=== PATIENT | female | born 1975 | race American Indian/Alaskan Native ===

== ENCOUNTER 2017-10-05 16:43 | Emergency (ER) | payer SELFPAY ==
[2017-10-05 16:51] VITALS: BP 112/81
[2017-10-05 19:54] LABS: Bilirubin,Urine NEG (Negative); Blood,Urine NEG (Negative); Color,Urine Yellow (Yellow); Protein,Urine <15 mg/dL mg/dL (Negative); RBC,Urine < 1.0 /HPF (0.0-6.0); Urobilinogen,Urine < 2.0 mg/dL (<2.0)
--- NOTE | 2017-10-05 20:34 | Emergency Department Report ---
ED Abdominal Pain HPI - General Chief Complaint: Abdominal Pain Stated Complaint: WANTS CARE Time Seen by Provider: 10/05/17 17:11 Source: patient Mode of arrival: Ambulatory Limitations: No Limitations - History of Present Illness Initial Comments: Patient is a 42-year-old [place] female who is presenting with a week of lower abdominal crampiness. Patient/. Was in June of this year and the patient states she is not having this he says she has not taken a test however she just assumed that she was . The patient's had no vaginal bleeding vaginal discharge dysuria. Persistence of lower abdominal crampiness is 3 out of 10 in severity. Patient's Tongan is not very good and she has a blend technician here with her who is able to translate into [place]. - Related Data Previous Rx's Medication Instructions Recorded Last Taken Type Pnv No.118/Iron Fumarate/FA 1 each PO QDAY #30 tab.chew 10/05/17 Unknown Rx [ 19 Chewable] Allergies Allergy/AdvReac Type Severity Reaction Status Date / Time No Known Allergies Allergy Unverified 10/05/17 16:48 ED Review of Systems ROS: Stated complaint: WANTS CARE Other details as noted in HPI Comment: All other systems reviewed and negative ED Past Medical Hx - Past Medical History Previous Medical History?: No - Surgical History Past Surgical History?: No - Social History Smoking Status: Never Smoker Substance Use Type: None - Medications Home Medications: Home Medications Medication Instructions Recorded Confirmed Last Taken Type Pnv No.118/Iron Fumarate/FA 1 each PO QDAY #30 tab.chew 10/05/17 Unknown Rx [ 19 Chewable] ED Physical Exam - General Limitations: No Limitations General appearance: alert, in no apparent distress - Head Head exam: Present: atraumatic, normocephalic - Eye Eye exam: Present: normal appearance - ENT ENT exam: Present: mucous membranes moist - Neck Neck exam: Present: normal inspection - Respiratory Respiratory exam: Present: normal lung sounds bilaterally. Absent: respiratory distress, wheezes, rales, rhonchi - Cardiovascular Cardiovascular Exam: Present: regular rate, normal rhythm. Absent: systolic murmur, diastolic murmur, rubs, gallop - GI/Abdominal GI/Abdominal exam: Present: soft, distended, tenderness (spinal suprapubic tenderness, there is also obvious a gravid uterus), normal bowel sounds. Absent : guarding, rebound - Extremities Exam Extremities exam: Present: normal inspection - Back Exam Back exam: Present: normal inspection - Neurological Exam Neurological exam: Present: alert, oriented X3 - Psychiatric Psychiatric exam: Present: normal affect, normal mood - Skin Skin exam: Present: warm, dry, intact, normal color. Absent: rash ED Course Vital Signs 10/05/17 16:48 Temperature 98.1 F Pulse Rate 103 H Respiratory 18 Rate Blood Pressure 112/81 O2 Sat by Pulse 100 Oximetry ED Medical Decision Making - Radiology Data interpreted by me: A bedside ultrasound was performed by me that showed a viable IUP with a heart rate of 165. The head circumference measured the fetus at 17 weeks 4 days. This is consistent with her missing her last period in June. There is good movement. 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 Patient be discharged home Critical care attestation.: If time is entered above; I have spent that time in minutes in the direct care of this critically ill patient, excluding procedure time. ED Disposition Clinical Impression: Qualifiers: Weeks of gestation: 17 weeks Qualified Code(s): Z3A.17 - 17 weeks gestation of Disposition: DC-01 TO HOME OR SELFCARE Is pt being admited?: No Does the pt Need Aspirin: No Condition: Stable Instructions: Abdominal Pain in (ED) Prescriptions: Pnv No.118/Iron Fumarate/FA [ 19 Chewable] 1 each PO QDAY #30 tab.chew Referrals: ANUPAMA MONROE MD [Staff Physician] - 3-5 Days
== END 2017-10-05 20:40 | disposition home or self-care (01) ==
LOC: EDBD → ED 16:43
DX: O26.892 Other specified pregnancy related conditions, second trimester (principal); R10.30 Lower abdominal pain, unspecified; Z3A.17 17 weeks gestation of pregnancy
CPT/HCPCS: 81001; 99282

== ENCOUNTER 2018-03-09 09:42 | Outpatient (CLI) | payer SELFPAY ==
[2018-03-09 10:04] VITALS: BP 119/76
== END 2018-03-09 12:05 | disposition home or self-care (01) ==
LOC: TRG 09:42
PROVIDERS: ATTEND Obstetrics & Gynecology
DX: O47.1 False labor at or after 37 completed weeks of gestation (principal); Z3A.40 40 weeks gestation of pregnancy
CPT/HCPCS: 59025

== ENCOUNTER 2018-03-12 19:21 | Inpatient (IN) | payer OTHER ==
[2018-03-12] MEDS ORDERED: XYLOCAINE 2% INFILTRATI ONE (19:59)
[2018-03-12] MEDS ORDERED: MINERAL OIL PO PRN (19:59)
[2018-03-12] MEDS ORDERED: BRETHINE IVP PRN (19:59)
[2018-03-12] MEDS ORDERED: SUBLIMAZE IV PRN (19:59)
[2018-03-12] MEDS ORDERED: BRETHINE SUB-Q PRN (19:59)
[2018-03-12] MEDS ORDERED: PHENERGAN PO PRN (19:59)
[2018-03-12] MEDS ORDERED: ZOFRAN IV PRN (19:59)
[2018-03-12] MEDS ORDERED: PITOCin/NS 20 UNIT/1000ML DRIP 20 UNITS/1,000 ML BAG IV SCH (20:00)
[2018-03-12] MEDS ORDERED: PITOCin/NS 30 UNIT/500ML 30 UNITS/500 ML BAG IV SCH ×2 (20:00)
--- NOTE | 2018-03-12 20:05 | History and Physical Report ---
History of Present Illness Date of examination: 03/12/18 Chief complaint: labor History of present illness: Pt is a 42yo BF EDC 03/09/18; EGA 40 3/7 weeks presents to L&D complaining of SROM @ 10am followed by irregular contractions. She received care at [facility] since22 weeks and course has been unremarkable except AMA. records are available and GBS is Negative. Past History Past Medical History: no pertinent history Past Surgical History: no surgical history Family/Genetic History: none Social history: no significant social history, - Obstetrical History Expected Date of Delivery: 03/09/18 Actual Gestation: 40 Week(s) 4 Day(s) : 4 Medications and Allergies Allergies Allergy/AdvReac Type Severity Reaction Status Date / Time No Known Allergies Allergy Unverified 10/05/17 16:48 Home Medications Medication Instructions Recorded Confirmed Last Taken Type Pnv No.118/Iron Fumarate/FA 1 each PO QDAY #30 tab.chew 10/05/17 03/12/18 Unknown Rx [ 19 Chewable] Review of Systems All systems: negative - Vital Signs Vital signs: Vital Signs Pulse BP 100 H 141/92 03/12/18 19:30 03/12/18 19:30 Temp Pulse Resp BP Pulse Ox 100 H 141/92 03/12/18 19:30 03/12/18 19:30 - Physical Exam Breasts: Positive: deferred Cardiovascular: Regular rate Lungs: Positive: Clear to auscultation Abdomen: Positive: normal appearance Genitourinary (Female): Positive: normal external genitalia Vagina: Positive: normal moisture Uterus: Positive: enlarged Extremities: Positive: normal - Obstetrical FHR: category 1 Uterine Contraction Monitor Mode: External Cervical Dilatation: 1 (per nurse) Cervical Effacement Percentage: 50 (per nurse) station: -3 Uterine Contraction Pattern: Irregular Uterine Contraction Intensity: Mild Results Result Diagrams: 03/12/18 20:47 All other labs normal. Assessment and Plan - Patient Problems (1) 40 weeks gestation of Onset Date: 03/12/18 Current Visit: Yes Status: Acute Plan to address problem: A: IUP @ 40 3/7 weeks in labor AMA P: Admit to L&D for pitocin augmentation of labor (2) AMA (advanced maternal age) multigravida 35+ Onset Date: 03/12/18 Current Visit: Yes Status: Acute Qualifiers: Trimester: third trimester Qualified Code(s): O09.523 - Supervision of elderly multigravida, third trimester
[2018-03-12] MEDS ORDERED: AFLURIA QUAD 2018-2019 SYRINGE IM ONE (20:25)
[2018-03-12] MEDS: LACTATED RINGERS 1,000 ML IV SCH (20:56)
[2018-03-12] MEDS: STADOL IV PRN (20:57)
[2018-03-12 20:59] LABS: Hemoglobin 11.6 gm/dl (10.1-14.3); Mean Corpuscular HGB Conc 33 % (30-34); Mean Corpuscular Hemoglobin 29 pg (28-32); Mean Corpuscular Volume 87 fl (79-97); Platelet Count 232 K/mm3 (140-440); Red Blood Count 4.04 M/mm3 (3.65-5.03); Red Cell Distribution Width 15.1 % (13.2-15.2)
[2018-03-13] MEDS: STADOL IV PRN (03:53)
[2018-03-13] MEDS: LACTATED RINGERS 1,000 ML IV SCH (03:57)
--- NOTE | 2018-03-13 08:04 | Progress Note ---
Assessment and Plan - Patient Problems (1) 40 weeks gestation of Onset Date: 03/12/18 Current Visit: Yes Status: Acute Plan to address problem: A: IUP @ 40 4/7 weeks in labor P: Continue with pitocin augmentation of labor Expectant vaginal delivery Subjective - Subjective Date of service: 03/13/18 Principal diagnosis: IUP @ 40 4/7 weeks Interval history: Pt is currently on pitocin 10mu/min and avinash q 3-4 mins Patient reports: loss of fluid, movement normal, contractions, no new complaints, no vaginal bleeding Objective - Vital Signs Vital Signs: Vital Signs - 12hr 03/12/18 03/12/18 03/13/18 20:19 21:03 01:00 Temperature 98.6 F 98 F Pulse Rate 83 90 Respiratory 20 18 Rate Blood Pressure 133/78 Blood Pressure 137/77 [Right] 03/13/18 03/13/18 03/13/18 01:09 03:44 03:48 Temperature 98.4 F Pulse Rate 76 88 Respiratory 18 Rate Blood Pressure 116/61 131/81 Blood Pressure [Right] 03/13/18 03/13/18 03/13/18 03:59 04:29 05:01 Temperature Pulse Rate 90 97 H 116 H Respiratory Rate Blood Pressure 135/82 142/101 119/77 Blood Pressure [Right] 03/13/18 03/13/18 03/13/18 05:31 06:00 06:29 Temperature Pulse Rate 118 H 114 H 117 H Respiratory Rate Blood Pressure 144/89 130/73 125/74 Blood Pressure [Right] 03/13/18 03/13/18 03/13/18 07:01 07:30 08:00 Temperature Pulse Rate 122 H 123 H 126 H Respiratory Rate Blood Pressure 155/93 133/88 135/83 Blood Pressure [Right] - Exam Cardiovascular: Regular rate Lungs: Clear to auscultation Abdomen: Present: normal appearance, soft Uterus: Present: normal FHR: category 1 Uterine Contraction Monitor Mode: External Cervical Dilatation: 4 Cervical Effacement Percentage: 70 station: -2 Uterine Contraction Pattern: Regular Uterine Tone Measurement Phase: Contraction Uterine Contraction Intensity: Strong/Firm - Labs Labs: Laboratory Results - last 24 hr 03/12/18 03/12/18 20:47 20:47 WBC 9.9 RBC 4.04 Hgb 11.6 Hct 35.0 MCV 87 MCH 29 MCHC 33 RDW 15.1 Plt Count 232 Blood Type O POSITIVE Antibody Screen Negative
[2018-03-13] MEDS ORDERED: fentaNYL-BUPIV 2 MCG/ML-0.125% 200 MCG/100 ML BAG EPIDURAL SCH (09:00)
[2018-03-13] MEDS ORDERED: NARCAN 2 MG/2 ML IV PRN (09:00)
[2018-03-13] MEDS ORDERED: TYLENOL ONE (09:18)
[2018-03-13] MEDS ORDERED: TYLENOL PO NR (09:21)
[2018-03-13] MEDS ORDERED: ceFAZolin 2 GM in NACL 0.9% 100 ML IV ONE (10:00)
[2018-03-13] MEDS ORDERED: DULCOLAX PR PRN (14:11)
[2018-03-13] MEDS ORDERED: TYLENOL PO PRN (14:11)
[2018-03-13] MEDS ORDERED: TUCKS PAD TP PRN (14:11)
[2018-03-13] MEDS ORDERED: PHENERGAN PO PRN (14:11)
[2018-03-13] MEDS ORDERED: ZOFRAN IV PRN (14:11)
[2018-03-13] MEDS ORDERED: LANSINOH TP PRN (14:11)
[2018-03-13] MEDS ORDERED: NORCO 5/325 PO PRN (14:11)
[2018-03-13] MEDS ORDERED: BENADRYL PO PRN (14:11)
[2018-03-13] MEDS ORDERED: MILK OF MAGNESIA PO PRN (14:11)
[2018-03-13] MEDS ORDERED: PHENERGAN PR PRN (14:11)
--- NOTE | 2018-03-13 14:21 | Procedure Note ---
OB Delivery Note - Delivery Date of Delivery: 03/13/18 Surgeon: SANDY MOSS Estimated blood loss: 200cc - Vaginal Delivery presentation: vertex Delivery position: OA Intrapartum events: febrile- temp >100.3, PROM->1hr before delivery Delivery induction: none Delivery augmentation: pitocin Delivery monitor: external FHT, external uterine Route of delivery: Delivery placenta: spontaneous Delivery cord: 3 umbilical vessels Episiotomy: none Delivery laceration: none Anesthesia: epidural Delivery comments: delivered OA and placed on Mom's chest for [id number] bonding and delayed cord clamping, cut by Aunty - A at 1 minute: 8 at 5 minutes: 9 Gender: Female ([id number])
[2018-03-13] MEDS ORDERED: SODIUM CHLORIDE FLUSH SYRINGE 10 ML IV NR (15:00)
[2018-03-13] MEDS ORDERED: PITOCin/NS 20 UNIT/1000ML DRIP 20 UNITS/1,000 ML BAG IV SCH (15:00)
[2018-03-13] MEDS ORDERED: POLYCILLIN/NS 2 GM/100 ML 2 GM/100 ML BAG IV SCH (15:00)
[2018-03-13] MEDS: MOTRIN PO SCH ×2 (18:20→23:47)
[2018-03-13] MEDS: COLACE PO SCH (22:19)
[2018-03-13] MEDS: FEOSOL PO SCH (22:19)
[2018-03-14 01:45] LABS: Hematocrit 31.4 % (30.3-42.9); Hemoglobin 10.4 gm/dl (10.1-14.3)
[2018-03-14] MEDS: MOTRIN PO SCH ×4 (05:37→22:41)
[2018-03-14] MEDS ORDERED: BOOSTRIX IM ONE (06:00)
[2018-03-14] MEDS ORDERED: M-M-R II VACCINE SUB-Q ONE (06:00)
[2018-03-14] MEDS: FEOSOL PO SCH ×2 (10:20→22:41)
[2018-03-14] MEDS: PRENATAL VITAMIN PO SCH (10:20)
--- NOTE | 2018-03-14 14:51 | Progress Note ---
Assessment and Plan - Patient Problems (1) 40 weeks gestation of Onset Date: 03/12/18 Current Visit: Yes Status: Resolved (2) (normal spontaneous vaginal delivery) Onset Date: 03/14/18 Current Visit: Yes Status: Resolved Plan to address problem: A: S/P - PPD #1 Doing well Asymptomatic anemia - stable P: May go home tomorrow. Subjective - Subjective Date of service: 03/14/18 Principal diagnosis: s/p - PPD #1 Interval history: Pt is feeling well without complaints. Bleeding has improved. Patient reports: appetite normal, voiding normally, pain well controlled, flatus , ambulating normally, no dizzy ambulation, no nauseated : doing well, nursing well Objective - Vital Signs Latest vital signs: Vital Signs Temp Pulse Resp BP BP Pulse Ox 03/14/18 07:40 97.4 F L 77 18 104/62 98 03/14/18 04:00 98.4 F 74 16 114/78 03/14/18 00:00 -98.8 F L 74 16 101/79 03/13/18 20:30 98.7 F 79 18 93/45 03/13/18 16:25 98.9 F 105 H 20 121/72 95 03/13/18 15:18 109 H 117/68 03/13/18 14:48 112 H 118/65 Intake and Output 03/13/18 03/14/18 03/14/18 22:59 06:59 14:59 Intake Total 500 300 360 Output Total 1500 600 Balance -1000 -300 360 Intake: Oral 200 360 Intake, Free Water 300 300 Output: Urine 1500 600 Void 1500 600 Other: Total, Intake Amount 200 360 Total, Output Amount 700 600 # Voids Void 1 1 2 Estimated Blood Loss 200 - Exam Breasts: Present: deferred Cardiovascular: Present: Regular rate Lungs: Present: Clear to auscultation Abdomen: Present: normal appearance, soft Uterus: Present: normal, firm, fundal height below umbilicus Extremities: Present: normal - Labs Labs: Laboratory Tests 03/12/18 03/12/18 03/12/18 20:47 20:47 20:47 WBC 9.9 RBC 4.04 Hgb 11.6 Hct 35.0 MCV 87 MCH 29 MCHC 33 RDW 15.1 Plt Count 232 RPR Nonreactive Hep Bs Antigen Rubella IgG Antibody Blood Type O POSITIVE Antibody Screen Negative 03/13/18 03/13/18 03/14/18 18:00 18:00 01:08 WBC RBC Hgb 10.4 Hct 31.4 MCV MCH MCHC RDW Plt Count RPR Hep Bs Antigen Non-reactive Rubella IgG Antibody Immune Blood Type Antibody Screen
--- NOTE | 2018-03-14 14:55 | Discharge Summary ---
Providers - Providers Date of Admission: 03/12/18 19:59 Date of discharge: 03/15/18 Attending physician: SANDY MOSS Primary care physician: SANDY MOSS Hospitalization Reason for admission: active labor, rupture of membranes, IUP at term Delivery: Episiotomy: none Laceration: none Other procedures: none complications: none Discharge diagnosis: IUP at term delivered [place] baby: female Hospital course: Unremarkable. Condition at discharge: Good Disposition: DC-01 TO HOME OR SELFCARE - Discharge Diagnoses (1) 40 weeks gestation of Status: Resolved (2) (normal spontaneous vaginal delivery) Status: Resolved Plan - Discharge Medications Prescriptions: Ferrous Sulfate [Feosol 325 MG tab] 325 mg PO BID #60 tablet Ibuprofen [Motrin 600 MG tab] 600 mg PO Q6H #30 tablet Vit-Fe Fumar-FA [ Vitamin] 1 each PO QDAY #30 tablet - Provider Discharge Summary Activity: routine, no sex for 6 weeks, no heavy lifting 4 weeks, no strenuous exercise Diet: routine Instructions: routine Additional instructions: [] Smoking cessation referral if applicable(refer to patient education folder for contact #) [] Refer to [facility] Booklet Call your doctor immediately for: * Fever > 100.5 * Heavy vaginal bleeding ( >1 pad per hour) * Severe persistent headache * Shortness of breath * Reddened, hot, painful area to leg or breast * Drainage or odor from incision. * Keep incision clean and dry at all times and follow doctor's instructions regarding bathing/showering - Follow up plan Follow up: SANDY MOSS MD [Primary Care Provider] - 6 Weeks
[2018-03-14] MEDS: COLACE PO SCH (22:41)
[2018-03-15] MEDS: MOTRIN PO SCH ×3 (05:13→15:00)
[2018-03-15] MEDS: FEOSOL PO SCH (10:57)
[2018-03-15] MEDS: COLACE PO SCH (10:57)
[2018-03-15] MEDS: PRENATAL VITAMIN PO SCH (10:57)
[2018-03-15 19:25] VITALS: BP 118/72
== END 2018-03-15 17:20 | disposition home or self-care (01) | DRG 775 ==
LOC: TRG 19:21 → LD 19:59 → TRG 19:59 → OB 03-13 17:11
PROVIDERS: ADMIT Obstetrics & Gynecology; ATTEND Obstetrics & Gynecology
PROC: 10E0XZZ Delivery of Products of Conception, External Approach (ICD-10-PCS; principal; 2018-03-13)
PROC: 3E0234Z Introduction of Serum, Toxoid and Vaccine into Muscle, Percutaneous Approach (ICD-10-PCS; 2018-03-13)
PROC: 3E0R3BZ Introduction of Anesthetic Agent into Spinal Canal, Percutaneous Approach (ICD-10-PCS; 2018-03-13)
PROC: 00HU33Z Insertion of Infusion Device into Spinal Canal, Percutaneous Approach (ICD-10-PCS; 2018-03-13)
DX: O42.02 Full-term premature rupture of membranes, onset of labor within 24 hours of rupture (principal); Z3A.40 40 weeks gestation of pregnancy; Z37.0 Single live birth; Z23 Encounter for immunization; O99.02 Anemia complicating childbirth; D64.9 Anemia, unspecified
CPT/HCPCS: 36415; 85014; 85018; 85027; 86592; 86706; 86762; 86850; 86900; 86901; 90471; 90686; 90715; 99211; A6250; G0463; J0595; J0690; J2590; J7120

== ENCOUNTER 2018-03-16 18:49 | Observation (INO) | payer SELFPAY ==
--- NOTE | 2018-03-16 19:18 | Emergency Department Report ---
ED Abdominal Pain HPI - General Chief Complaint: Abdominal Pain Stated Complaint: STOMACH PAIN Time Seen by Provider: 03/16/18 19:15 Source: patient Mode of arrival: Wheelchair Limitations: No Limitations - Related Data Previous Rx's Medication Instructions Recorded Last Taken Type Pnv No.118/Iron Fumarate/FA 1 each PO QDAY #30 tab.chew 10/05/17 Unknown Rx [ 19 Chewable] Ferrous Sulfate [Feosol 325 MG tab] 325 mg PO BID #60 tablet 03/14/18 Unknown Rx Ibuprofen [Motrin 600 MG tab] 600 mg PO Q6H #30 tablet 03/14/18 Unknown Rx Vit-Fe Fumar-FA [ 1 each PO QDAY #30 tablet 03/14/18 Unknown Rx Vitamin] Allergies Allergy/AdvReac Type Severity Reaction Status Date / Time No Known Allergies Allergy Unverified 10/05/17 16:48 ED Review of Systems ROS: Stated complaint: STOMACH PAIN Other details as noted in HPI ED Past Medical Hx - Past Medical History Hx Hypertension: No Hx Congestive Heart Failure: No Hx Diabetes: No Hx Deep Vein Thrombosis: No Hx Renal Disease: No Hx Sickle Cell Disease: No Hx Seizures: No Hx Asthma: No Hx COPD: No Hx HIV: No - Surgical History Past Surgical History?: No - Social History Smoking Status: Never Smoker Substance Use Type: None - Medications Home Medications: Home Medications Medication Instructions Recorded Confirmed Last Taken Type Pnv No.118/Iron Fumarate/FA 1 each PO QDAY #30 tab.chew 10/05/17 03/12/18 Unknown Rx [ 19 Chewable] Ferrous Sulfate [Feosol 325 MG tab] 325 mg PO BID #60 tablet 03/14/18 Unknown Rx Ibuprofen [Motrin 600 MG tab] 600 mg PO Q6H #30 tablet 03/14/18 Unknown Rx Vit-Fe Fumar-FA [ 1 each PO QDAY #30 tablet 03/14/18 Unknown Rx Vitamin] ED Physical Exam - General Limitations: No Limitations ED Course Vital Signs 03/16/18 18:55 Temperature 99.9 F H Pulse Rate 86 Respiratory 16 Rate Blood Pressure 146/82 O2 Sat by Pulse 100 Oximetry Critical care attestation.: If time is entered above; I have spent that time in minutes in the direct care of this critically ill patient, excluding procedure time. ED Disposition Condition: Stable Instructions: Abdominal Pain (ED)
--- NOTE | 2018-03-16 19:46 | Emergency Department Report ---
Blank Doc - Documentation Documentation: This is a 42-year-old female patient that is 4 days complaining of lower abdominal pain that began this morning. She said pain is worse when she gets up better when she sits down. Pain is 8/10 and sharp. Denies any urinary burning, frequency or urgency. She says she is having regular bleeding from vaginal delivery. Complaining of chills. Pain is located in the pelvic area. Denies any shortness of breath or chest pain. She is also complaining of bilateral lower swelling. Denies any coughing. Physical exam Alert and oriented 3. On toxic in appearance CV: S1, S2. Regular rate. Abdomen: Suprapubic tenderness. No CVA tenderness. Positive bowel sounds in all quadrants. Lungs: Air to auscultate bilaterally no rhonchi wheezes or rales Extremity: BilLateral lower extremity swelling. +2 pedal pulses. No clubbing or cyanosis. Assessment/plan Abdominal pain-status post 4 days Bilateral lower extremity swelling Labs: Urinalysis, urine culture, hepatic panel, BMP, CBC and BNP. Patient to be seen by zeny Gipson
[2018-03-16 19:58] LABS: Hematocrit 35.8 % (30.3-42.9); Hemoglobin 11.8 gm/dl (10.1-14.3); Mean Corpuscular HGB Conc 33 % (30-34); Mean Corpuscular Hemoglobin 29 pg (28-32); Mean Corpuscular Volume 87 fl (79-97); Platelet Count 265 K/mm3 (140-440); Red Cell Distribution Width 14.8 % (13.2-15.2)
[2018-03-16 20:03] LABS: Bacteria,Urine 1+ /HPF (Negative); Bilirubin,Urine NEG (Negative); Blood,Urine LG (Negative); Color,Urine Yellow (Yellow); Protein,Urine <15 mg/dL mg/dL (Negative); Urobilinogen,Urine < 2.0 mg/dL (<2.0)
[2018-03-16 20:26] LABS: Alanine Aminotransferase 14 units/L (7-56); Albumin 3.3 g/dL (3.9-5); BUN/Creatinine Ratio 15; Blood Urea Nitrogen 9 mg/dL (7-17); Calcium 8.7 mg/dL (8.4-10.2); Hemolysis Index 0
[2018-03-16 20:34] LABS: Bilirubin,Direct < 0.2 mg/dL (0-0.2)
[2018-03-16 21:00] LABS: Band Neutrophils # (Manual) 0.4 K/mm3; Total Cells Counted 100
[2018-03-16 21:01] LABS: Basophils % (Manual) 0 % (0.0-1.8)
[2018-03-16 21:02] LABS: Poikilocytosis Rare
[2018-03-16] MEDS ORDERED: ZOFRAN IV ONE (21:05)
[2018-03-16] MEDS ORDERED: MORPHINE IV ONE (21:05)
--- NOTE | 2018-03-16 21:26 | Emergency Department Report ---
ED Abdominal Pain HPI - General Chief Complaint: Abdominal Pain Stated Complaint: STOMACH PAIN Time Seen by Provider: 03/16/18 19:15 Source: patient Mode of arrival: Wheelchair Limitations: No Limitations - History of Present Illness Initial Comments: Patient just had a vaginal delivery on Tuesday (4 days) ago. She was discharged from the hospital last night. She came back to the hospital this evening complaining of suprapubic abdominal pain and bilateral leg swelling. Patient denies fevers/chills, nausea, vomiting, chest pain or shortness of breath. Patient's CHECK OUT CASHIER doctor was Dr. Shiv Mcgovern. Complaint: abdominal pain -: Sudden, This evening Location: suprapubic Radiation: back Migration to: no migration Severity: severe Severity scale (0 -10): 8 Quality: sharp Consistency: constant Improves With: nothing Worsens With: nothing Associated Symptoms: denies other symptoms - Related Data LMP (females 10-50): unknown Previous Rx's Medication Instructions Recorded Last Taken Type Pnv No.118/Iron Fumarate/FA 1 each PO QDAY #30 tab.chew 10/05/17 Unknown Rx [ 19 Chewable] Ferrous Sulfate [Feosol 325 MG tab] 325 mg PO BID #60 tablet 03/14/18 Unknown Rx Ibuprofen [Motrin 600 MG tab] 600 mg PO Q6H #30 tablet 03/14/18 Unknown Rx Vit-Fe Fumar-FA [ 1 each PO QDAY #30 tablet 03/14/18 Unknown Rx Vitamin] Allergies Allergy/AdvReac Type Severity Reaction Status Date / Time No Known Allergies Allergy Unverified 10/05/17 16:48 ED Review of Systems ROS: Stated complaint: STOMACH PAIN Other details as noted in HPI Comment: All other systems reviewed and negative Constitutional: denies: chills, fever Eyes: denies: eye pain ENT: denies: ear pain, throat pain Respiratory: denies: cough, orthopnea, shortness of breath, SOB with exertion Cardiovascular: denies: chest pain, palpitations, dyspnea on exertion Endocrine: no symptoms reported Gastrointestinal: abdominal pain. denies: nausea, vomiting, diarrhea, constipation Genitourinary: denies: urgency, dysuria, frequency Musculoskeletal: denies: back pain, joint swelling Skin: denies: rash, lesions Neurological: denies: headache, weakness, numbness Psychiatric: denies: anxiety, depression Hematological/Lymphatic: denies: easy bleeding, easy bruising ED Past Medical Hx - Past Medical History Hx Hypertension: No Hx Congestive Heart Failure: No Hx Diabetes: No Hx Deep Vein Thrombosis: No Hx Renal Disease: No Hx Sickle Cell Disease: No Hx Seizures: No Hx Asthma: No Hx COPD: No Hx HIV: No - Surgical History Past Surgical History?: No - Social History Smoking Status: Never Smoker Substance Use Type: None - Medications Home Medications: Home Medications Medication Instructions Recorded Confirmed Last Taken Type Pnv No.118/Iron Fumarate/FA 1 each PO QDAY #30 tab.chew 10/05/17 03/12/18 Unknown Rx [ 19 Chewable] Ferrous Sulfate [Feosol 325 MG tab] 325 mg PO BID #60 tablet 03/14/18 Unknown Rx Ibuprofen [Motrin 600 MG tab] 600 mg PO Q6H #30 tablet 03/14/18 Unknown Rx Vit-Fe Fumar-FA [ 1 each PO QDAY #30 tablet 03/14/18 Unknown Rx Vitamin] ED Physical Exam - General Limitations: No Limitations General appearance: alert, in no apparent distress - Head Head exam: Present: atraumatic, normocephalic, normal inspection - Eye Eye exam: Present: normal appearance, PERRL, EOMI Pupils: Present: normal accommodation - ENT ENT exam: Present: normal exam, normal orophraynx, mucous membranes moist - Neck Neck exam: Present: normal inspection, full ROM. Absent: tenderness - Respiratory Respiratory exam: Present: normal lung sounds bilaterally. Absent: respiratory distress, wheezes, rales, rhonchi, stridor - Cardiovascular Cardiovascular Exam: Present: regular rate, normal rhythm, normal heart sounds - GI/Abdominal GI/Abdominal exam: Present: soft, tenderness (Suprapubic tenderness to plapation ), normal bowel sounds. Absent: distended, guarding, rebound, rigid - Rectal Rectal exam: Present: deferred - External exam: Present: normal external exam. Absent: erythema, swelling, lacerations Speculum exam: Present: vaginal bleeding. Absent: erythema, vaginal discharge, cervical discharge, foreign body, tissue, laceration Bi-manual exam: Present: uterine enlargement, uterine tenderness, other ( [place] was Ms. Deann RN>). Absent: cervical motion tendernes, adnexal tenderness, adnexal mass - Extremities Exam Extremities exam: Present: pedal edema - Back Exam Back exam: Present: normal inspection, full ROM - Neurological Exam Neurological exam: Present: alert, oriented X3, CN II-XII intact - Psychiatric Psychiatric exam: Present: normal affect, normal mood - Skin Skin exam: Present: warm, dry, intact, normal color. Absent: rash ED Course Vital Signs 03/16/18 03/16/18 03/17/18 18:55 21:55 00:11 Temperature 99.9 F H 98.6 F Pulse Rate 86 82 82 Respiratory 16 18 14 Rate Blood Pressure 146/82 Blood Pressure 131/70 [Right] O2 Sat by Pulse 100 99 Oximetry 03/17/18 03/17/18 00:15 00:20 Temperature 98.6 F Pulse Rate 91 H Respiratory 24 Rate Blood Pressure 126/66 Blood Pressure [Right] O2 Sat by Pulse 99 Oximetry ED Medical Decision Making - Lab Data Result diagrams: 03/16/18 19:48 03/16/18 19:48 Lab Results 03/16/18 03/16/18 03/16/18 Range/Units 19:45 19:48 19:48 WBC 10.4 (4.5-11.0) K/mm3 RBC 4.10 (3.65-5.03) M/mm3 Hgb 11.8 (10.1-14.3) gm/dl Hct 35.8 (30.3-42.9) % MCV 87 (79-97) fl MCH 29 (28-32) pg MCHC 33 (30-34) % RDW 14.8 (13.2-15.2) % Plt Count 265 (140-440) K/mm3 Add Manual Diff Complete Total Counted 100 Seg Neuts % (Manual) 75.0 H (40.0-70.0) % Band Neutrophils % 4.0 % Lymphocytes % (Manual) 12.0 L (13.4-35.0) % Reactive Lymphs % (Man) 0 % Monocytes % (Manual) 6.0 (0.0-7.3) % Eosinophils % (Manual) 2.0 (0.0-4.3) % Basophils % (Manual) 0 (0.0-1.8) % Metamyelocytes % 1.0 % Myelocytes % 0 % Promyelocytes % 0 % Blast Cells % 0 % Nucleated RBC % Not Reportable Seg Neutrophils # Man 7.8 H (1.8-7.7) K/mm3 Band Neutrophils # 0.4 K/mm3 Lymphocytes # (Manual) 1.2 (1.2-5.4) K/mm3 Abs React Lymphs (Man) 0.0 K/mm3 Monocytes # (Manual) 0.6 (0.0-0.8) K/mm3 Eosinophils # (Manual) 0.2 (0.0-0.4) K/mm3 Basophils # (Manual) 0.0 (0.0-0.1) K/mm3 Metamyelocytes # 0.1 K/mm3 Myelocytes # 0.0 K/mm3 Promyelocytes # 0.0 K/mm3 Blast Cells # 0.0 K/mm3 WBC Morphology Not Reportable Hypersegmented Neuts Not Reportable Hyposegmented Neuts Not Reportable Hypogranular Neuts Not Reportable Smudge Cells Not Reportable Toxic Granulation Not Reportable Toxic Vacuolation Not Reportable Dohle Bodies Not Reportable Pelger-Huet Anomaly Not Reportable Анна Rods Not Reportable Platelet Estimate Appears normal Clumped Platelets Not Reportable Plt Clumps, EDTA Not Reportable Large Platelets Not Reportable Giant Platelets Not Reportable Platelet Satelliting Not Reportable Plt Morphology Comment Not Reportable RBC Morphology Not Reportable Dimorphic RBCs Not Reportable Polychromasia Not Reportable Hypochromasia Not Reportable Poikilocytosis Rare Anisocytosis Not Reportable Microcytosis Not Reportable Macrocytosis Not Reportable Spherocytes Not Reportable Pappenheimer Bodies Not Reportable Sickle Cells Not Reportable Target Cells Not Reportable Tear Drop Cells Not Reportable Ovalocytes Not Reportable Helmet Cells Not Reportable Little-Sisters Bodies Not Reportable [place] Rings Not Reportable Krystin Cells Not Reportable Bite Cells Not Reportable Crenated Cell Not Reportable Elliptocytes Not Reportable Acanthocytes (Spur) Not Reportable Rouleaux Not Reportable Hemoglobin C Crystals Not Reportable Schistocytes Not Reportable Malaria parasites Not Reportable Gregorio Bodies Not Reportable Hem Pathologist Commnt No Sodium 138 (137-145) mmol/L Potassium 4.2 (3.6-5.0) mmol/L Chloride 103.8 (98-107) mmol/L Carbon Dioxide 24 (22-30) mmol/L Anion Gap 14 mmol/L BUN 9 (7-17) mg/dL Creatinine 0.6 L (0.7-1.2) mg/dL Estimated GFR > 60 ml/min BUN/Creatinine Ratio 15 % Glucose 91 (65-100) mg/dL Calcium 8.7 (8.4-10.2) mg/dL Total Bilirubin 0.40 (0.1-1.2) mg/dL Direct Bilirubin < 0.2 (0-0.2) mg/dL AST 26 (5-40) units/L ALT 14 (7-56) units/L Alkaline Phosphatase 230 H (35-129) units/L Total Protein 6.8 (6.3-8.2) g/dL Albumin 3.3 L (3.9-5) g/dL Albumin/Globulin Ratio 0.9 % Urine Color Yellow (Yellow) Urine Turbidity Clear (Clear) Urine pH 7.0 (5.0-7.0) Ur Specific [place] 1.008 (1.003-1.030) Urine Protein <15 mg/dl (Negative) mg/dL Urine Glucose (UA) Neg (Negative) mg/dL Urine Ketones Neg (Negative) mg/dL Urine Blood Lg (Negative) Urine Nitrite Neg (Negative) Urine Bilirubin Neg (Negative) Urine Urobilinogen < 2.0 (<2.0) mg/dL Ur Leukocyte Esterase Mod (Negative) Urine WBC (Auto) 6.0 (0.0-6.0) /HPF Urine RBC (Auto) 2.0 (0.0-6.0) /HPF U Epithel Cells (Auto) 1.0 (0-13.0) /HPF Urine Bacteria (Auto) 1+ (Negative) /HPF - Radiology Data Radiology results: report reviewed, image reviewed Pelvic ultrasound showed that the left ovary could not be identified. However and no acute abnormality was seen. - Medical Decision Making I consulted Dr. Shiv Mcgovern who is the patient's CHECK OUT CASHIER doctor. He will like to admit the patient for observation and for further evaluation and management. Critical Care Time: Yes Critical care time in (mins) excluding proc time.: 45 Critical care attestation.: If time is entered above; I have spent that time in minutes in the direct care of this critically ill patient, excluding procedure time. ED Disposition Clinical Impression: Edema during , delivered, with complication Abdominal pain Qualifiers: Abdominal location: unspecified location Qualified Code(s): R10.9 - Unspecified abdominal pain Disposition: OP ADMIT IP TO THIS HOSP Is pt being admited?: Yes Does the pt Need Aspirin: No Condition: Stable Instructions: Abdominal Pain (ED) Referrals: PRIMARY CARE, [Primary Care Provider] - 3-5 Days Time of Disposition: 01:31
--- NOTE | 2018-03-16 22:40 | Ultrasound Report ---
FINAL REPORT PROCEDURE: US transabdominal and TRANSVAGINAL TECHNIQUE: Real-time transabdominal sonography in multiple planes of the pelvis was performed. The pelvic structures, especially the ovaries were not optimally visualized. Transvaginal sonography was then performed to better evaluate the structures and/or abnormalities described below with image documentation. CPT 99431 and 96505 HISTORY: Pelvic pain COMPARISON: No prior studies are available for comparison. FINDINGS: UTERUS Size: 17.2 x 10.0 x 11.3 cm. Endometrial thickness: 6 mm. No endometrial fluid is seen Orientation: anteverted. Cervix: Small amount of fluid is seen in the endocervical canal. Fibroids/masses: None. RIGHT Ovary: 3.1 x 1.5 x 2.2 cm. Appearance: Small 1 centimeter cyst or follicle is present. LEFT Ovary: Not visualized Pelvic fluid: None. Other: None. IMPRESSION: Left ovary is not visualized. No acute abnormality is identified.
--- NOTE | 2018-03-16 22:40 | Ultrasound Report ---
FINAL REPORT PROCEDURE: US transabdominal and TRANSVAGINAL TECHNIQUE: Real-time transabdominal sonography in multiple planes of the pelvis was performed. The pelvic structures, especially the ovaries were not optimally visualized. Transvaginal sonography was then performed to better evaluate the structures and/or abnormalities described below with image documentation. CPT 81921 and 52835 HISTORY: Pelvic pain COMPARISON: No prior studies are available for comparison. FINDINGS: UTERUS Size: 17.2 x 10.0 x 11.3 cm. Endometrial thickness: 6 mm. No endometrial fluid is seen Orientation: anteverted. Cervix: Small amount of fluid is seen in the endocervical canal. Fibroids/masses: None. RIGHT Ovary: 3.1 x 1.5 x 2.2 cm. Appearance: Small 1 centimeter cyst or follicle is present. LEFT Ovary: Not visualized Pelvic fluid: None. Other: None. IMPRESSION: Left ovary is not visualized. No acute abnormality is identified.
[2018-03-17] MEDS ORDERED: MORPHINE ONE ×2 (00:58→00:59)
[2018-03-17] MEDS ORDERED: MORPHINE IV ONE (01:03)
[2018-03-17] MEDS ORDERED: LASIX IV ONE (01:32)
--- NOTE | 2018-03-17 11:49 | Short Stay Summary ---
Short Stay Documentation Date of service: 03/17/18 Narrative H&P: Pt is a 42yo BF s/p 03/13/18 presents to [facility] ER complaining of difficulty walking. - History Principal diagnosis: Difficulty ambulating H&P: obtained from office Past Medical History: No medical history Past Surgical History: No surgical history Social history: no significant social history, - Allergies and Medications Current Medications: Allergies No Known Allergies Allergy (Unverified 10/05/17 16:48) Home Medications Medication Instructions Recorded Confirmed Last Taken Type Pnv No.118/Iron Fumarate/FA 1 each PO QDAY #30 tab.chew 10/05/17 03/12/18 Unknown Rx [ 19 Chewable] Ferrous Sulfate [Feosol 325 MG tab] 325 mg PO BID #60 tablet 03/14/18 Unknown Rx Ibuprofen [Motrin 600 MG tab] 600 mg PO Q6H #30 tablet 03/14/18 Unknown Rx Vit-Fe Fumar-FA [ 1 each PO QDAY #30 tablet 03/14/18 Unknown Rx Vitamin] Active Medications Ibuprofen (Motrin) 600 mg PO Q6H PRN PRN Reason: Pain, Mild (1-3) - Physical exam General appearance: mild distress HEENT: Atraumatic Lungs: Clear to auscultation Breasts: deferred Heart: Regular rate Gastrointestinal: normal Female Genitourinary: deferred Rectal Exam: deferred Neurological: Normal speech - Hospital course Hospital course: Unremarkable. No evidence of preeclampsia. Pelvic X-ray - WNL. - Disposition Condition at discharge: Good Disposition: DC-01 TO HOME OR SELFCARE - Discharge Diagnoses (1) Pelvic joint pain Status: Chronic Qualifiers: Laterality: unspecified laterality Qualified Code(s): M25.559 - Pain in unspecified hip Short Stay Discharge Plan Activity: advance as tolerated, other (Ambulate with a walker) Diet: regular Durable Medical Equipment Needed Upon Discharge: Walker-Rolling Follow up with: TATE HUBBARD MD [Primary Care Provider] - 3-5 Days SANDY MOSS MD [Staff Physician] - 7 Days Prescriptions: Ibuprofen [Motrin 600 MG tab] 600 mg PO Q6H PRN #30 tablet PRN Reason: Pain, Mild (1-3)
[2018-03-17] MEDS ORDERED: COLACE PO PRN (12:11)
[2018-03-17] MEDS ORDERED: TYLENOL PO PRN (12:11)
[2018-03-17] MEDS: MOTRIN PO PRN (17:19)
[2018-03-18] MEDS: MOTRIN PO PRN ×3 (00:52→18:56)
--- NOTE | 2018-03-18 09:49 | XRay Report ---
FINAL REPORT EXAM: XR PELVIS 1-2V HISTORY: s/p COMPARISON: None. TECHNIQUE: Two views of the pelvis FINDINGS: There is normal alignment without acute fracture or dislocation. The sacroiliac joints and symphysis pubis are intact. The bilateral hip joint spaces are preserved. The overlying soft tissues are intact. IMPRESSION: No acute bony abnormality of the pelvis.
[2018-03-18] MEDS: PRENATAL VITAMIN PO SCH (10:38)
[2018-03-19] MEDS: MOTRIN PO PRN (09:40)
[2018-03-19] MEDS: PRENATAL VITAMIN PO SCH (09:40)
[2018-03-19 18:57] VITALS: BP 150/90
== END 2018-03-19 16:45 | disposition home or self-care (01) ==
LOC: ED 18:49 → OB 03-17 01:33
PROVIDERS: ADMIT Obstetrics & Gynecology; ATTEND Obstetrics & Gynecology
DX: M25.559 Pain in unspecified hip (principal)
CPT/HCPCS: 36415; 72170; 76830; 76856; 80048; 80074; 81001; 85007; 85025; 87040; 87086; 96374; 96375; 96376; 99285; G0378; J1940; J2270; J2405